=== PATIENT | female | born 1990 | race Caucasian/White ===

== ENCOUNTER 2022-01-01 16:16 | Observation (INO) ==
[2022-01-01 14:45] LABS: Amorphous Sediment,Urine Few per hpf (None-Few); Bacteria,Urine Many per hpf (None-Few); Bilirubin,Urine Negative (Negative); Blood,Urine Trace (Negative); Clarity,Urine Turbid (Clear); Color,Urine Yellow (Yellow); Glucose,Urine (UA) Normal (Normal); Hyaline Casts,Urine Few per lpf (None Seen); Ketones,Urine Negative (Negative); Leukocyte Esterase,Urine Trace (Negative); Mucus,Urine Few per lpf (None-Few); Nitrite,Urine Negative (Negative); PH,Urine 6.5 pH Units (5.0-8.0); Protein,Urine >=300 mg/dL (Neg-Trace); Renal Epithelial Cells,Urine Few per hpf (None-Few); Specific Gravity,Urine 1.016 (1.010-1.025); Squamous Epithelial Cell,Urine Moderate per hpf (None-Few); Transitional Epi Cells,Urine Few per hpf (None-Few); Urobilinogen,Urine Normal (Normal); WBC,Urine 15-30 per hpf (0-3)
[2022-01-01 14:53] LABS: Basophils % 0.6 %; Eosinophils # 0.1 K/mcL (0.0-0.6); Eosinophils % 0.8 %; Hematocrit 34.2 % (35.3-44.9); Hemoglobin 11.2 g/dL (11.5-15.4); Immature Granulocytes % 2.7 % (0-4); Lymphocytes # 1.4 K/mcL (0.6-4.6); Lymphocytes % 19.9 %; Mean Corpuscular HGB Conc 32.7 g/dL (31.6-35.5); Mean Corpuscular Hemoglobin 31.5 pg (28.0-33.3); Mean Corpuscular Volume 96.3 fL (83.0-100.0); Mean Platelet Volume 12.7 fL (9.4-12.4); Monocytes # 0.7 K/mcL (0.0-1.3); Monocytes % 9.9 %; Neutrophils # 4.7 K/mcL (1.6-8.9); Platelet Count 154 K/mcL (140-400); Red Blood Count 3.55 M/mcL (3.82-4.97); Red Cell Distribution Width 12.4 % (11.5-14.5); Segmented Neutrophils % 66.1 %; White Blood Count 7.1 K/mcL (4.3-11.1)
[2022-01-01] MEDS: Betamethasone Acet/SodPhos 30 MG/5 ML VIAL IM SCH (14:55)
[2022-01-01 15:06] LABS: Alanine Aminotransferase 46 Units/L (7-52); Aspartate Amino Transferase 46 Units/L (13-39); BUN/Creatinine Ratio 12 (6-26); Blood Urea Nitrogen 10 mg/dL (6-20); Lactate Dehydrogenase 272 Units/L (140-271); Uric Acid 7.2 mg/dL (2.3-7.6); eGFR For African Americans > 60 (> 60); eGFR For Non-African Americans > 60 (> 60)
[2022-01-01 18:51] LABS: Protein/Creatinine Ratio,Urine 2.87 mg/mg (0.00-0.20)
[2022-01-02 07:11] VITALS: TEMP 98.2
[2022-01-02 12:14] VITALS: O2SAT 100
[2022-01-02 12:20] LABS: Eosinophils % 0.1 %; Immature Granulocytes % 2.1 % (0-4); Mean Corpuscular Volume 96.6 fL (83.0-100.0); Platelet Count 171 K/mcL (140-400); Red Cell Distribution Width 12.6 % (11.5-14.5)
[2022-01-02 12:22] LABS: Basophils % 0.2 %; Hematocrit 36.5 % (35.3-44.9); Hemoglobin 12.4 g/dL (11.5-15.4); Immature Platelets 16.9 % (1.1-6.1); Lymphocytes # 1.5 K/mcL (0.6-4.6); Lymphocytes % 10.5 %; Mean Corpuscular Hemoglobin 32.8 pg (28.0-33.3); Mean Platelet Volume 13.3 fL (9.4-12.4); Monocytes # 0.8 K/mcL (0.0-1.3); Monocytes % 5.5 %; Red Blood Count 3.78 M/mcL (3.82-4.97); Segmented Neutrophils % 81.6 %; White Blood Count 14.5 K/mcL (4.3-11.1)
[2022-01-02 12:26] LABS: Neutrophils # 11.8 K/mcL (1.6-8.9)
[2022-01-02 12:37] LABS: Alanine Aminotransferase 52 Units/L (7-52); Aspartate Amino Transferase 53 Units/L (13-39); BUN/Creatinine Ratio 13 (6-26); Blood Urea Nitrogen 12 mg/dL (6-20); Lactate Dehydrogenase 344 Units/L (140-271); Uric Acid 7.7 mg/dL (2.3-7.6); eGFR For African Americans > 60 (> 60); eGFR For Non-African Americans > 60 (> 60)
[2022-01-02] MEDS: Betamethasone Acet/SodPhos 30 MG/5 ML VIAL IM SCH (14:51)
[2022-01-02 15:25] LABS: Total Volume 24 Hour,Urine 1.93 Liters (0.60-1.60)
[2022-01-02 16:42] VITALS: BP 135/86; PULSE 73
== END 2022-01-02 19:01 | disposition home health service (06) ==
LOC: 1NENULAB → 1NENUOBS 16:16
PROVIDERS: ADMIT Advanced Practice Midwife; ATTEND Advanced Practice Midwife

== ENCOUNTER 2022-01-05 17:43 | Inpatient (IN) ==
[2022-01-05] MEDS ORDERED: Famotidine 20 MG/2 ML VIAL IVP PRN (18:36)
[2022-01-05] MEDS ORDERED: Ondansetron 4 MG/2 ML VIAL IVP PRN ×2 (18:36→21:54)
[2022-01-05] MEDS ORDERED: Calcium Gluconate 1,000 MG/10 ML VIAL IVP PRN (18:36)
[2022-01-05] MEDS ORDERED: Azithromycin 500 MG in 0.9 % Sodium Chloride 250 ML IVPB PRN (18:36)
[2022-01-05] MEDS ORDERED: Metoclopramide 10 MG/2 ML VIAL IVP PRN (18:36)
[2022-01-05] MEDS ORDERED: Naloxone 0.4 MG/ML INJ IVP PRN ×2 (18:36→21:54)
[2022-01-05] MEDS ORDERED: Ringers Solution, Lactated 1,000 ML ONE (18:40)
[2022-01-05] MEDS ORDERED: D5% in Lactated Ringers 1,000 ML IVC SCH (18:45)
[2022-01-05] MEDS ORDERED: miSOPROStoL 25 MCG TABLET VG PRN (19:24)
[2022-01-05] MEDS ORDERED: Penicillin G Potassium 5,000,000 UNIT in 0.9 % Sodium Chloride Mini Bag 100 ML IVPB ONE (19:30)
[2022-01-05] MEDS: Magnesium Sulf 20 gm/SW 500mL 20 GM/500 ML IV.SOLN IVC SCH (20:10)
[2022-01-05 21:30] LABS: Amphetamine Screen,Urine Negative ng/mL (Cutoff=1000); Barbiturate Screen,Urine Negative ng/mL (Cutoff=200); Benzodiazepines Screen,Urine Negative ng/mL (Cutoff=200); Cannabinoid Screen,Urine Negative ng/mL (Cutoff = 50); Cocaine Screen,Urine Negative ng/mL (Cutoff= 300); Opiate Screen,Urine Negative ng/mL (Cutoff=300); Phencyclidine Screen,Urine Negative ng/mL (Cutoff=25)
[2022-01-05] MEDS ORDERED: EPHEDrine 50 MG/ML VIAL IVP PRN (21:54)
[2022-01-05] MEDS ORDERED: *HR* FentaNYL (PF) 100 MCG/2 ML VIAL EP ONE (21:54)
[2022-01-05] MEDS ORDERED: Ropivacaine/PF 0.2% 20 ML VIAL EP ONE (21:54)
[2022-01-05] MEDS ORDERED: Epidural Premix (fent/bupiv) 110 ML EP SCH (22:00)
[2022-01-05 22:05] LABS: Influenza A PCR Negative (Negative); Influenza B PCR Negative (Negative); Resp. Syncytial Virus PCR Negative (Negative); SARS-CoV-2 by PCR (In House) Negative (Negative)
[2022-01-05 22:13] LABS: Eosinophils % 0.8 %; Hematocrit 39.1 % (35.3-44.9)
[2022-01-05 22:15] LABS: Basophils # 0.2 K/mcL (0.0-0.2); Basophils % 1.2 %; Eosinophils # 0.1 K/mcL (0.0-0.6); Hemoglobin 12.7 g/dL (11.5-15.4); Immature Granulocytes % 8.3 % (0-4); Immature Platelets 19.3 % (1.1-6.1); Lymphocytes # 2.3 K/mcL (0.6-4.6); Lymphocytes % 14.2 %; Mean Corpuscular HGB Conc 32.5 g/dL (31.6-35.5); Mean Corpuscular Hemoglobin 31.8 pg (28.0-33.3); Mean Platelet Volume 13.7 fL (9.4-12.4); Monocytes # 1.8 K/mcL (0.0-1.3); Monocytes % 11.1 %; Neutrophils # 10.6 K/mcL (1.6-8.9); Nucleated Red Blood Cells 3.8 /100 WBC (0); Platelet Count 150 K/mcL (140-400); Red Blood Count 3.99 M/mcL (3.82-4.97); Red Cell Distribution Width 12.9 % (11.5-14.5); Segmented Neutrophils % 64.4 %; White Blood Count 16.4 K/mcL (4.3-11.1)
[2022-01-05 22:33] LABS: Alanine Aminotransferase 349 Units/L (7-52); Aspartate Amino Transferase 267 Units/L (13-39); Uric Acid 9.8 mg/dL (2.3-7.6); eGFR For African Americans > 60 (> 60); eGFR For Non-African Americans 51 (> 60)
[2022-01-05 22:48] LABS: Large Platelets Present (Not Present); Reactive Lymphocytes Present (Not Present)
[2022-01-06] MEDS: Penicillin G Potassium 2,500,000 UNIT/105 ML MLS IVPB SCH ×2 (00:15→04:53)
[2022-01-06] MEDS ORDERED: Oxytocin 30 UNIT/503 ML BAG IVC SCH (00:30)
[2022-01-06 01:15] LABS: Magnesium 5.7 mg/dL (1.6-2.6); eGFR For African Americans > 60 (> 60); eGFR For Non-African Americans 54 (> 60)
[2022-01-06 04:26] LABS: Hemoglobin 11.8 g/dL (11.5-15.4); Mean Corpuscular Volume 99.2 fL (83.0-100.0)
[2022-01-06 04:27] LABS: Basophils # 0.2 K/mcL (0.0-0.2); Basophils % 1.4 %; Eosinophils # 0.1 K/mcL (0.0-0.6); Eosinophils % 0.4 %; Hematocrit 36.4 % (35.3-44.9); Immature Granulocytes % 8.7 % (0-4); Immature Platelets 21.5 % (1.1-6.1); Lymphocytes % 11.9 %; Mean Corpuscular HGB Conc 32.4 g/dL (31.6-35.5); Mean Corpuscular Hemoglobin 32.2 pg (28.0-33.3); Mean Platelet Volume 12.8 fL (9.4-12.4); Monocytes # 1.4 K/mcL (0.0-1.3); Neutrophils # 10.6 K/mcL (1.6-8.9); Nucleated Red Blood Cells 3.6 /100 WBC (0); Platelet Count 119 K/mcL (140-400); Red Blood Count 3.67 M/mcL (3.82-4.97); Segmented Neutrophils % 68.6 %; White Blood Count 15.5 K/mcL (4.3-11.1)
[2022-01-06 04:28] LABS: Lymphocytes # 1.8 K/mcL (0.6-4.6); Platelet Estimate Slight Decrease (Normal); Reactive Lymphocytes Present (Not Present)
[2022-01-06] MEDS ORDERED: *HR* Labetalol 20 MG/4 ML SYRINGE IVP ONE ×2 (04:42→06:40)
[2022-01-06 04:44] LABS: Alanine Aminotransferase 473 Units/L (7-52); Aspartate Amino Transferase 437 Units/L (13-39); Uric Acid 8.8 mg/dL (2.3-7.6); eGFR For African Americans > 60 (> 60); eGFR For Non-African Americans > 60 (> 60)
[2022-01-06] MEDS: Magnesium Sulf 20 gm/SW 500mL 20 GM/500 ML IV.SOLN IVC SCH (05:33)
[2022-01-06 05:48] LABS: Eosinophils % 0.2 %; Hematocrit 38.6 % (35.3-44.9)
[2022-01-06 05:50] LABS: Basophils # 0.2 K/mcL (0.0-0.2); Basophils % 1.4 %; Hemoglobin 12.6 g/dL (11.5-15.4); Immature Granulocytes % 8.1 % (0-4); Immature Platelets 18.5 % (1.1-6.1); Lymphocytes # 1.8 K/mcL (0.6-4.6); Lymphocytes % 10.9 %; Mean Corpuscular HGB Conc 32.6 g/dL (31.6-35.5); Mean Corpuscular Hemoglobin 31.4 pg (28.0-33.3); Mean Corpuscular Volume 96.3 fL (83.0-100.0); Mean Platelet Volume 13.5 fL (9.4-12.4); Monocytes # 1.6 K/mcL (0.0-1.3); Monocytes % 9.7 %; Neutrophils # 11.6 K/mcL (1.6-8.9); Nucleated Red Blood Cells 3.3 /100 WBC (0); Platelet Count 159 K/mcL (140-400); Red Blood Count 4.01 M/mcL (3.82-4.97); Segmented Neutrophils % 69.7 %; White Blood Count 16.6 K/mcL (4.3-11.1)
[2022-01-06 06:00] LABS: INR 0.8
[2022-01-06 06:02] LABS: Activated Partial Thrombo Time 25.9 Seconds (26.0-36.0)
[2022-01-06] MEDS ORDERED: CeFAZolin 2,000 MG/120 ML BAG IVPB STA (08:26)
[2022-01-06] MEDS ORDERED: Lidocaine/EPI 1:200k 2% PF 20 ML VIAL ONE (08:33)
[2022-01-06] MEDS ORDERED: Ringers Solution, Lactated 1,000 ML ONE (08:38)
[2022-01-06] MEDS ORDERED: Acetaminophen IV 1,000 MG/100 ML BAG IVPB ONE (09:08)
[2022-01-06] MEDS ORDERED: Ketorolac 30 MG/ML VIAL ONE (09:08)
[2022-01-06] MEDS ORDERED: *HR* Morphine Sulfate/PF 10 MG/10 ML AMPUL ONE (09:13)
[2022-01-06] MEDS ORDERED: *HR* FentaNYL (PF) 100 MCG/2 ML VIAL IVP PRN (10:14)
[2022-01-06 10:42] LABS: Hematocrit 37.2 % (35.3-44.9); Immature Platelets 21.1 % (1.1-6.1); Mean Corpuscular HGB Conc 32.3 g/dL (31.6-35.5); Mean Corpuscular Hemoglobin 32.3 pg (28.0-33.3); Mean Platelet Volume 14.1 fL (9.4-12.4); Nucleated Red Blood Cells 2.4 /100 WBC (0); Platelet Count 133 K/mcL (140-400); Red Blood Count 3.72 M/mcL (3.82-4.97); Red Cell Distribution Width 13.1 % (11.5-14.5); White Blood Count 16.2 K/mcL (4.3-11.1)
[2022-01-06 11:17] LABS: Lymphocytes # 1.6 K/mcL (0.6-4.6); Monocytes # 0.3 K/mcL (0.0-1.3); Neutrophils # 13.9 K/mcL (1.6-8.9); Platelet Estimate Decreased (Normal)
[2022-01-06] MEDS ORDERED: Rho Immune Globulin 1,500 UNIT SYRINGE IM ONE ×2 (12:21→22:00)
[2022-01-06] MEDS ORDERED: Simethicone 80 MG TAB.CHEW PO PRN (12:21)
[2022-01-06] MEDS ORDERED: *HR* Nalbuphine 10 MG/ML AMPUL IV PRN (12:21)
[2022-01-06] MEDS ORDERED: Famotidine 20 MG TABLET PO PRN (12:21)
[2022-01-06] MEDS ORDERED: Metoclopramide 10 MG/2 ML VIAL IVP PRN ×2 (12:21→19:26)
[2022-01-06] MEDS ORDERED: Ibuprofen 600 MG TABLET PO SCH (12:53)
[2022-01-06] MEDS: Ondansetron 4 MG/2 ML VIAL IVP PRN ×2 (12:54→20:17)
[2022-01-06] MEDS: Acetaminophen 325 MG TABLET PO SCH ×2 (12:55→23:47)
[2022-01-06] MEDS: Ringers Solution, Lactated 1,000 ML IVC SCH (13:31)
[2022-01-06] MEDS ORDERED: *HR* HYDROmorphone (PF) 1 MG/ML SYRINGE IVP ONE (13:35)
[2022-01-06 14:25] LABS: Nucleated Red Blood Cells 1.5 /100 WBC (0); Red Blood Count 3.51 M/mcL (3.82-4.97)
[2022-01-06 14:27] LABS: Basophils # 0.1 K/mcL (0.0-0.2); Basophils % 0.6 %; Eosinophils % 0.1 %; Hematocrit 34.7 % (35.3-44.9); Hemoglobin 11.3 g/dL (11.5-15.4); Immature Granulocytes % 4.4 % (0-4); Immature Platelets 19.1 % (1.1-6.1); Lymphocytes # 1.9 K/mcL (0.6-4.6); Lymphocytes % 10.8 %; Mean Corpuscular HGB Conc 32.6 g/dL (31.6-35.5); Mean Corpuscular Hemoglobin 32.2 pg (28.0-33.3); Mean Corpuscular Volume 98.9 fL (83.0-100.0); Mean Platelet Volume 14.1 fL (9.4-12.4); Monocytes # 1.5 K/mcL (0.0-1.3); Monocytes % 8.4 %; Neutrophils # 13.3 K/mcL (1.6-8.9); Platelet Count 129 K/mcL (140-400); Red Cell Distribution Width 13.2 % (11.5-14.5); Segmented Neutrophils % 75.7 %; White Blood Count 17.5 K/mcL (4.3-11.1)
[2022-01-06] MEDS ORDERED: cephALEXin 500 MG CAPSULE PO SCH (15:00)
[2022-01-06] MEDS ORDERED: metroNIDAZOLE 500 MG TABLET PO SCH (15:00)
[2022-01-06 15:01] LABS: Albumin 2.4 g/dL (3.5-5.7); Bilirubin,Total 0.7 mg/dL (0.3-1.0); Calcium 7.5 mg/dL (8.6-10.3); Globulin 2.3 g/dL (2.4-3.5); Magnesium 5.8 mg/dL (1.6-2.6); Potassium 4.9 mEq/L (3.5-5.1); Total Protein 4.7 g/dL (6.4-8.9)
[2022-01-06] MEDS ORDERED: Isovue-370 500 ML BOTTLE IVP ONE (16:58)
[2022-01-06] MEDS ORDERED: Ipratropium/Albuterol Neb 3 ML IH PRN (18:07)
[2022-01-06] MEDS ORDERED: Furosemide 20 MG/2 ML VIAL IVP ONE ×2 (18:39→20:17)
[2022-01-06] MEDS: Piperacillin/Tazobactam 3.375 GM in 0.9 % Sodium Chloride Mini Bag 100 ML IVPB SCH (18:49)
[2022-01-06] MEDS ORDERED: NIFEdipine XL (24 HR) 30 MG TAB.ER.24 PO SCH (19:30)
[2022-01-06] MEDS ORDERED: methylPREDNISolone 125 MG/2 ML VIAL IVP ONE (20:17)
[2022-01-06] MEDS ORDERED: Saliva Stimulant 44.3ml BOTTLE PO PRN (20:47)
[2022-01-06] MEDS ORDERED: Saline Nasal Spray 44 ML BOTTLE NS PRN (20:47)
[2022-01-06] MEDS ORDERED: Benzonatate 100 MG CAPSULE PO PRN (20:47)
[2022-01-06] MEDS ORDERED: Perflutren Lipid Microsphere 1.3 ML in 0.9 % Sodium Chloride 8.7 ML IVP PRN (20:51)
[2022-01-06] MEDS ORDERED: *HR* Dextrose 50 % in Water (Syg) 50 ML SYRINGE IVP PRN (20:52)
[2022-01-06] MEDS ORDERED: Dextrose Gel 15 GM/37.5 ML TUBE PO PRN ×2 (20:52)
[2022-01-06] MEDS ORDERED: D5% in Water 1,000 ML IVC PRN (20:52)
[2022-01-06 21:48] LABS: Adenovirus Not Detected (Not Detect); Bordetella Pertussis Not Detected (Not Detect); Chlamydophila pneumoniae Not Detected (Not Detect); Coronavirus 229E Not Detected (Not Detect); Coronavirus HKU1 Not Detected (Not Detect); Coronavirus NL63 Not Detected (Not Detect); Coronavirus OC43 Not Detected (Not Detect); Human Metapneumovirus Not Detected (Not Detect); Human Rhinovirus/Enterovirus Not Detected (Not Detect); Influenza A Subtype 2009 H1 Not Detected (Not Detect); Influenza B Not Detected (Not Detect); Mycoplasma pneumoniae Not Detected (Not Detect); Parainfluenza Virus 1 Not Detected (Not Detect); Parainfluenza Virus 2 Not Detected (Not Detect); Parainfluenza Virus 3 Not Detected (Not Detect); Parainfluenza Virus 4 Not Detected (Not Detect); Respiratory Syncytial Virus Not Detected (Not Detect); SARS-CoV-2 Not Detected (Not Detect)
[2022-01-06 23:15] LABS: ABG Base Excess -4 mEq/L (-2 to 3); ABG HCO3 20 mEq/L (21-27); ABG Oxygen Saturation 94 % (95-98); ABG PCO2 32 mmHg (35-45); ABG PH 7.39 pH Units (7.32-7.45); ABG PO2 70 mmHg (85-104); ABG TCO2 21 mEq/L (20-26)
[2022-01-06] MEDS: Ipratropium/Albuterol Neb 3 ML IH SCH ×2 (23:15→23:25)
[2022-01-06] MEDS: Budesonide/Formoterol 160/4.5 1 PUFF INH IH SCH (23:15)
[2022-01-06] MEDS: Oxytocin 30 UNIT/503 ML BAG IVC SCH (23:47)
[2022-01-07] MEDS: Acetaminophen 325 MG TABLET PO SCH ×4 (00:23→18:45)
[2022-01-07] MEDS: Artificial Tears SOLN 15 ML BOTTLE BOTH EYES SCH ×3 (00:24→20:32)
[2022-01-07] MEDS: Chlorhexidine Rinse 15 ML MOUTHWASH MM SCH ×2 (00:24→08:05)
[2022-01-07 00:34] LABS: Basophils % 0.5 %; Monocytes % 2.9 %; Nucleated Red Blood Cells 1.1 /100 WBC (0); Red Blood Count 3.94 M/mcL (3.82-4.97); Segmented Neutrophils % 85.3 %
[2022-01-07 00:36] LABS: Basophils # 0.1 K/mcL (0.0-0.2); Hematocrit 39.1 % (35.3-44.9); Hemoglobin 12.7 g/dL (11.5-15.4); Immature Granulocytes % 4.7 % (0-4); Immature Platelets 24.1 % (1.1-6.1); Lymphocytes # 1.6 K/mcL (0.6-4.6); Lymphocytes % 6.6 %; Mean Corpuscular HGB Conc 32.5 g/dL (31.6-35.5); Mean Corpuscular Hemoglobin 32.2 pg (28.0-33.3); Mean Corpuscular Volume 99.2 fL (83.0-100.0); Mean Platelet Volume 13.7 fL (9.4-12.4); Monocytes # 0.7 K/mcL (0.0-1.3); Neutrophils # 20.1 K/mcL (1.6-8.9); Platelet Count 145 K/mcL (140-400); Red Cell Distribution Width 13.2 % (11.5-14.5); White Blood Count 23.6 K/mcL (4.3-11.1)
[2022-01-07 00:51] LABS: Heparin anti-factor XA UFH < 0.04 IU/mL (0.30-0.70); INR 0.9; Prothrombin Time 9.9 Seconds (9.4-12.1)
[2022-01-07 00:53] LABS: Activated Partial Thrombo Time 25.4 Seconds (26.0-36.0)
[2022-01-07 01:03] LABS: D-Dimer 2166 ng/mLFEU (0-500)
[2022-01-07 01:05] LABS: Albumin 2.7 g/dL (3.5-5.7); Bilirubin,Total 0.7 mg/dL (0.3-1.0); Calcium 7.5 mg/dL (8.6-10.3); Globulin 2.8 g/dL (2.4-3.5); Magnesium 4.5 mg/dL (1.6-2.6); Phosphorous 6.6 mg/dL (2.7-4.5); Potassium 5.6 mEq/L (3.5-5.1); Thyroid Stimulating Hormone 2.399 mcIU/mL (0.340-5.600); Total Protein 5.5 g/dL (6.4-8.9); Troponin I 0.06 ng/mL (< 0.04)
[2022-01-07 01:34] LABS: Fibrinogen 277 mg/dL (169-393)
[2022-01-07] MEDS ORDERED: methylPREDNISolone 125 MG/2 ML VIAL IVP SCH (03:00)
[2022-01-07] MEDS: Piperacillin/Tazobactam 3.375 GM in 0.9 % Sodium Chloride Mini Bag 100 ML IVPB SCH ×3 (03:31→20:34)
[2022-01-07 03:32] LABS: Basophils # 0.1 K/mcL (0.0-0.2); Basophils % 0.5 %; Eosinophils # 0.1 K/mcL (0.0-0.6); Eosinophils % 0.3 %; Hematocrit 41.5 % (35.3-44.9); Hemoglobin 13.3 g/dL (11.5-15.4); Immature Granulocytes % 4.2 % (0-4); Immature Platelets 22.6 % (1.1-6.1); Lymphocytes # 1.5 K/mcL (0.6-4.6); Lymphocytes % 6.5 %; Mean Corpuscular Hemoglobin 31.7 pg (28.0-33.3); Mean Platelet Volume 14.2 fL (9.4-12.4); Monocytes # 0.6 K/mcL (0.0-1.3); Monocytes % 2.4 %; Nucleated Red Blood Cells 0.8 /100 WBC (0); Platelet Count 152 K/mcL (140-400); Red Blood Count 4.19 M/mcL (3.82-4.97); Red Cell Distribution Width 13.3 % (11.5-14.5); Segmented Neutrophils % 86.1 %; White Blood Count 23.2 K/mcL (4.3-11.1)
[2022-01-07] MEDS: *HR* OxyCODONE Immed Rel 5 MG TABLET PO PRN ×5 (03:42→20:39)
[2022-01-07] MEDS: Oxytocin 30 UNIT/503 ML BAG IVC SCH ×14 (03:43→23:50)
[2022-01-07 03:46] LABS: Calcium 7.7 mg/dL (8.6-10.3); Potassium 4.9 mEq/L (3.5-5.1)
[2022-01-07] MEDS: Ondansetron 4 MG/2 ML VIAL IVP PRN (03:47)
[2022-01-07] MEDS: Ipratropium/Albuterol Neb 3 ML IH SCH ×6 (04:10→23:06)
[2022-01-07] MEDS ORDERED: Morphine Sulfate Oral CONC 10 MG/0.5 ML ORAL.SYG SL ONE (04:18)
[2022-01-07] MEDS ORDERED: Scopolamine Patch 1.5 MG PATCH.TD72 TD SCH (05:30)
[2022-01-07 06:43] LABS: INR 0.9; Prothrombin Time 10.5 Seconds (9.4-12.1)
[2022-01-07 06:49] LABS: Lactate Dehydrogenase 641 Units/L (140-271); Total Protein 5.3 g/dL (6.4-8.9)
[2022-01-07] MEDS: Budesonide/Formoterol 160/4.5 1 PUFF INH IH SCH (07:36)
[2022-01-07] MEDS: Prenatal Vit/FA 1 EACH TABLET PO SCH (08:05)
[2022-01-07] MEDS ORDERED: NON-FORMULARY MEDICATION 1 EACH EACH (Pnv No.95/Ferrous Fum/Folic Ac [Prenatal Caplet] 1 E PO SCH (09:00)
[2022-01-07] MEDS: NIFEdipine XL (24 HR) 60 MG TAB.ER.24 PO SCH (10:03)
[2022-01-07] MEDS ORDERED: Furosemide 20 MG/2 ML VIAL IVP SCH (10:30)
[2022-01-07 11:16] LABS: Bilirubin,Urine Negative (Negative); Blood,Urine Small (Negative); Clarity,Urine Clear (Clear); Color,Urine Light-Yellow (Yellow); Glucose,Urine (UA) Normal (Normal); Hyaline Casts,Urine Many per lpf (None Seen); Ketones,Urine Negative (Negative); Leukocyte Esterase,Urine Negative (Negative); Mucus,Urine Few per lpf (None-Few); Nitrite,Urine Negative (Negative); Protein,Urine 100 mg/dL (Neg-Trace); RBC,Urine 0-3 per hpf (0-3); Renal Epithelial Cells,Urine Few per hpf (None-Few); Specific Gravity,Urine 1.022 (1.010-1.025); Squamous Epithelial Cell,Urine Few per hpf (None-Few); Transitional Epi Cells,Urine Few per hpf (None-Few); Urobilinogen,Urine Normal (Normal); WBC,Urine 0-3 per hpf (0-3)
[2022-01-07 11:44] LABS: Uric Acid 10.1 mg/dL (2.3-7.6)
[2022-01-07 11:56] LABS: Troponin I 0.06 ng/mL (< 0.04)
[2022-01-07] MEDS: Penicillin G Potassium 2,500,000 UNIT/105 ML MLS IVPB SCH (11:59)
[2022-01-07] MEDS: Ringers Solution, Lactated 1,000 ML IVC SCH (12:00)
[2022-01-07 14:14] LABS: Creatinine,Urine 125 mg/dL
[2022-01-07 17:17] LABS: RBC,Pleural Fluid 5000 RBC/mcL
[2022-01-07 17:32] LABS: Glucose,Pleural Fluid 150 mg/dL (No Ref Range); LDH,Pleural Fluid 122 Units/L (No Ref Range); Total Protein,Pleural Fluid < 2.0 g/dL
[2022-01-07 18:04] LABS: Appearance of Pleural Fl Hazy (Clear)
[2022-01-07] MEDS ORDERED: *HR* HYDROmorphone (PF) 1 MG/ML SYRINGE IVP ONE (18:22)
[2022-01-08] MEDS: Oxytocin 30 UNIT/503 ML BAG IVC SCH ×14 (00:25→22:26)
[2022-01-08] MEDS: Ipratropium/Albuterol Neb 3 ML IH SCH ×5 (03:15→20:26)
[2022-01-08] MEDS: Acetaminophen 325 MG TABLET PO SCH ×5 (03:37→23:16)
[2022-01-08] MEDS: Piperacillin/Tazobactam 3.375 GM in 0.9 % Sodium Chloride Mini Bag 100 ML IVPB SCH ×3 (03:37→20:51)
[2022-01-08 05:04] LABS: Basophils # 0.1 K/mcL (0.0-0.2); Basophils % 0.3 %; Hematocrit 34.3 % (35.3-44.9); Immature Granulocytes % 2.2 % (0-4); Lymphocytes # 3.2 K/mcL (0.6-4.6); Lymphocytes % 13.7 %; Mean Corpuscular HGB Conc 32.7 g/dL (31.6-35.5); Mean Corpuscular Hemoglobin 31.7 pg (28.0-33.3); Mean Corpuscular Volume 97.2 fL (83.0-100.0); Mean Platelet Volume 12.4 fL (9.4-12.4); Monocytes # 1.9 K/mcL (0.0-1.3); Neutrophils # 17.7 K/mcL (1.6-8.9); Nucleated Red Blood Cells 0.4 /100 WBC (0); Platelet Count 203 K/mcL (140-400); Red Blood Count 3.53 M/mcL (3.82-4.97); Red Cell Distribution Width 14.1 % (11.5-14.5); Segmented Neutrophils % 75.8 %; White Blood Count 23.3 K/mcL (4.3-11.1)
[2022-01-08 05:11] LABS: Hemoglobin 11.2 g/dL (11.5-15.4)
[2022-01-08 05:19] LABS: BUN/Creatinine Ratio 28 (6-26); Blood Urea Nitrogen 31 mg/dL (6-20); Calcium 7.6 mg/dL (8.6-10.3); Carbon Dioxide 24 mEq/L (23-29); Chloride 103 mEq/L (98-107); Glucose 92 mg/dL (70-105); Osmolality,Calculated 284 (280-300); Potassium 4.8 mEq/L (3.5-5.1); Sodium 134 mEq/L (136-145); eGFR For African Americans > 60 (> 60); eGFR For Non-African Americans 56 (> 60)
[2022-01-08] MEDS: *HR* OxyCODONE Immed Rel 5 MG TABLET PO PRN ×3 (06:14→20:51)
[2022-01-08] MEDS: NIFEdipine XL (24 HR) 60 MG TAB.ER.24 PO SCH (07:54)
[2022-01-08] MEDS: Artificial Tears SOLN 15 ML BOTTLE BOTH EYES SCH ×2 (07:56→20:51)
[2022-01-08] MEDS: Prenatal Vit/FA 1 EACH TABLET PO SCH (07:57)
[2022-01-08] MEDS ORDERED: MethylPREDNISolone 40 MG/ML VIAL IVP SCH (09:00)
[2022-01-08 09:08] LABS: Alanine Aminotransferase 185 Units/L (7-52); Albumin 2.7 g/dL (3.5-5.7); Albumin/Globulin Ratio 1.2 (1.1-2.2); Alkaline Phosphatase 83 Units/L (34-104); Aspartate Amino Transferase 84 Units/L (13-39); Bilirubin,Direct 0.1 mg/dL (0.0-0.2); Bilirubin,Indirect 0.4 mg/dL (0.0-1.0); Bilirubin,Total 0.5 mg/dL (0.3-1.0); Globulin 2.2 g/dL (2.4-3.5); Total Protein 4.9 g/dL (6.4-8.9)
[2022-01-08 12:32] LABS: Protein/Creatinine Ratio,Urine 1.93 mg/mg (0.00-0.20); Sodium, Urine 42.3 mEq/L
[2022-01-09] MEDS: Ipratropium/Albuterol Neb 3 ML IH SCH ×6 (00:07→20:19)
[2022-01-09] MEDS: *HR* OxyCODONE Immed Rel 5 MG TABLET PO PRN ×3 (00:55→21:43)
[2022-01-09] MEDS: Piperacillin/Tazobactam 3.375 GM in 0.9 % Sodium Chloride Mini Bag 100 ML IVPB SCH ×2 (02:50→12:02)
[2022-01-09 03:16] LABS: Basophils % 0.3 %; Eosinophils # 0.1 K/mcL (0.0-0.6); Eosinophils % 0.9 %; Hematocrit 31.8 % (35.3-44.9); Immature Granulocytes % 1.3 % (0-4); Lymphocytes # 2.8 K/mcL (0.6-4.6); Lymphocytes % 23.4 %; Mean Corpuscular HGB Conc 31.4 g/dL (31.6-35.5); Mean Corpuscular Hemoglobin 31.3 pg (28.0-33.3); Mean Corpuscular Volume 99.4 fL (83.0-100.0); Mean Platelet Volume 11.6 fL (9.4-12.4); Monocytes # 1.4 K/mcL (0.0-1.3); Monocytes % 11.4 %; Neutrophils # 7.5 K/mcL (1.6-8.9); Nucleated Red Blood Cells 0.2 /100 WBC (0); Platelet Count 146 K/mcL (140-400); Red Cell Distribution Width 14.1 % (11.5-14.5); Segmented Neutrophils % 62.7 %; White Blood Count 11.9 K/mcL (4.3-11.1)
[2022-01-09 03:35] LABS: Alanine Aminotransferase 130 Units/L (7-52); Albumin 2.3 g/dL (3.5-5.7); Albumin/Globulin Ratio 1.1 (1.1-2.2); Alkaline Phosphatase 59 Units/L (34-104); Aspartate Amino Transferase 80 Units/L (13-39); BUN/Creatinine Ratio 23 (6-26); Bilirubin,Total 0.4 mg/dL (0.3-1.0); Blood Urea Nitrogen 20 mg/dL (6-20); C-Reactive Protein 11 mg/L (Less than 10); Calcium 7.2 mg/dL (8.6-10.3); Carbon Dioxide 25 mEq/L (23-29); Chloride 107 mEq/L (98-107); Chol/HDL Ratio 4.6 (0-4.9); Cholesterol 162 mg/dL (< 200); Globulin 2.1 g/dL (2.4-3.5); Glucose 89 mg/dL (70-105); HDL Cholesterol 35 mg/dL (40-59); LDL Cholesterol,Calculated 78 mg/dL (< 100); Osmolality,Calculated 282 (280-300); Potassium 4.7 mEq/L (3.5-5.1); Sodium 135 mEq/L (136-145); Total Protein 4.4 g/dL (6.4-8.9); Triglycerides 247 mg/dL (< 150); eGFR For African Americans > 60 (> 60); eGFR For Non-African Americans > 60 (> 60)
[2022-01-09] MEDS: Acetaminophen 325 MG TABLET PO SCH ×2 (05:17→12:01)
[2022-01-09] MEDS: Oxytocin 30 UNIT/503 ML BAG IVC SCH ×4 (07:58→14:01)
[2022-01-09] MEDS: Prenatal Vit/FA 1 EACH TABLET PO SCH (08:21)
[2022-01-09] MEDS: Artificial Tears SOLN 15 ML BOTTLE BOTH EYES SCH (08:23)
[2022-01-09] MEDS ORDERED: Metoprolol XL (24 HR) Succ 25 MG TAB.ER.24H PO SCH (09:00)
[2022-01-09] MEDS ORDERED: Benzonatate 100 MG CAPSULE PO PRN (20:04)
[2022-01-09] MEDS ORDERED: Famotidine 20 MG TABLET PO PRN (20:04)
[2022-01-09] MEDS ORDERED: Ipratropium/Albuterol Neb 3 ML IH PRN (20:04)
[2022-01-09] MEDS ORDERED: Ondansetron 4 MG/2 ML VIAL IVP PRN (20:04)
[2022-01-09] MEDS ORDERED: Artificial Tears SOLN 15 ML BOTTLE BOTH EYES SCH (21:00)
[2022-01-10] MEDS: Acetaminophen 325 MG TABLET PO SCH ×3 (00:02→18:15)
[2022-01-10] MEDS: Ipratropium/Albuterol Neb 3 ML IH SCH ×4 (04:17→14:06)
[2022-01-10] MEDS: *HR* OxyCODONE Immed Rel 5 MG TABLET PO PRN ×2 (09:29→23:42)
[2022-01-10 09:54] LABS: Basophils % 0.4 %; Eosinophils # 0.3 K/mcL (0.0-0.6); Eosinophils % 4.2 %; Hematocrit 35.9 % (35.3-44.9); Hemoglobin 11.2 g/dL (11.5-15.4); Immature Granulocytes % 1.5 % (0-4); Lymphocytes # 2.1 K/mcL (0.6-4.6); Lymphocytes % 27.2 %; Mean Corpuscular HGB Conc 31.2 g/dL (31.6-35.5); Mean Corpuscular Hemoglobin 31.8 pg (28.0-33.3); Mean Platelet Volume 10.7 fL (9.4-12.4); Monocytes # 0.7 K/mcL (0.0-1.3); Monocytes % 8.9 %; Neutrophils # 4.4 K/mcL (1.6-8.9); Platelet Count 190 K/mcL (140-400); Red Blood Count 3.52 M/mcL (3.82-4.97); Red Cell Distribution Width 14.4 % (11.5-14.5); Segmented Neutrophils % 57.8 %; White Blood Count 7.6 K/mcL (4.3-11.1)
[2022-01-10 10:15] LABS: Alanine Aminotransferase 142 Units/L (7-52); Aspartate Amino Transferase 99 Units/L (13-39); BUN/Creatinine Ratio 18 (6-26); Blood Urea Nitrogen 15 mg/dL (6-20); Lactate Dehydrogenase 350 Units/L (140-271); Uric Acid 5.5 mg/dL (2.3-7.6); eGFR For African Americans > 60 (> 60); eGFR For Non-African Americans > 60 (> 60)
[2022-01-10] MEDS ORDERED: Ipratropium/Albuterol Neb 3 ML IH PRN (13:48)
[2022-01-10 14:07] LABS: Fluid Source for Cholesterol PLEURAL FLUID
[2022-01-10 14:08] LABS: Cholesterol,Body Fluid 11 mg/dL; Fluid Source for Triglycerides PLEURAL FLUID; Triglycerides,Body Fluid 16 mg/dL
[2022-01-10 14:26] LABS: ANA IgG by ELISA NONE DETECTED (None Detected)
[2022-01-11] MEDS: Acetaminophen 325 MG TABLET PO SCH (04:30)
[2022-01-11] MEDS: *HR* OxyCODONE Immed Rel 5 MG TABLET PO PRN ×3 (04:30→14:49)
[2022-01-11 04:36] VITALS: O2SAT 98
[2022-01-11 07:38] VITALS: BP 127/81; PULSE 71; TEMP 98
[2022-01-11 08:10] LABS: Alanine Aminotransferase 162 Units/L (7-52); Aspartate Amino Transferase 115 Units/L (13-39); BUN/Creatinine Ratio 19 (6-26); Blood Urea Nitrogen 13 mg/dL (6-20); Lactate Dehydrogenase 307 Units/L (140-271); Uric Acid 5.4 mg/dL (2.3-7.6); eGFR For African Americans > 60 (> 60); eGFR For Non-African Americans > 60 (> 60)
[2022-01-11 08:16] LABS: Basophils % 0.5 %; Eosinophils # 0.3 K/mcL (0.0-0.6); Eosinophils % 3.5 %; Hemoglobin 10.4 g/dL (11.5-15.4); Immature Granulocytes % 1.2 % (0-4); Lymphocytes # 2.1 K/mcL (0.6-4.6); Lymphocytes % 28.1 %; Mean Corpuscular HGB Conc 31.5 g/dL (31.6-35.5); Mean Corpuscular Hemoglobin 31.8 pg (28.0-33.3); Mean Corpuscular Volume 100.9 fL (83.0-100.0); Mean Platelet Volume 10.8 fL (9.4-12.4); Monocytes # 0.6 K/mcL (0.0-1.3); Monocytes % 7.5 %; Neutrophils # 4.5 K/mcL (1.6-8.9); Platelet Count 195 K/mcL (140-400); Red Blood Count 3.27 M/mcL (3.82-4.97); Red Cell Distribution Width 14.2 % (11.5-14.5); Segmented Neutrophils % 59.2 %; White Blood Count 7.6 K/mcL (4.3-11.1)
[2022-01-11 09:28] LABS: Mycoplasma pneumoniae IgG 0.19 U/L (<=0.09)
== END 2022-01-11 15:42 | disposition home or self-care (01) | DRG 805 ==
LOC: 1NENULAB 17:43 → 1NENUOBS 01-06 13:19 → 2NENU 01-06 23:07 → 1NENUOBS 01-09 17:50
PROVIDERS: ADMIT Obstetrics & Gynecology; ATTEND Obstetrics & Gynecology